=== PATIENT | male | born 1960 | race Caucasian/White ===

== ENCOUNTER 2019-05-06 14:43 | Outpatient (CLI) | payer OTHER ==
--- NOTE | 2019-05-06 15:12 | RAD ---
EXAM: CHEST TWO VIEWS: 05/06/19 HISTORY: Follow-up pneumothorax. Postop midline sternotomy. Blunting of the left costophrenic angle with some minimal associated pleur al and parenchymal opacity changes. The right chest appears clear. IMPRESSION: Minimal pleural and parenchymal opacity changes resulting in some blunting of the left costophrenic a ngle. No old studies. Postop midline sternotomy. Atherosclerosis of the aorta. No evidence for pneumo thorax. POS: C
== END 2019-05-06 14:44 | disposition home or self-care (01) ==
LOC: RAD 14:43
PROVIDERS: ATTEND Thoracic Surgery (Cardiothoracic Vascular Surgery)
DX: J93.9 Pneumothorax, unspecified (principal); R91.8 Other nonspecific abnormal finding of lung field; I70.0 Atherosclerosis of aorta; Z98.890 Other specified postprocedural states
CPT/HCPCS: 71046